=== PATIENT | female | born 1930 | race Caucasian/White ===

== ENCOUNTER 2018-03-06 02:12 | Emergency (ER) | payer MEDICARE, OTHER ==
[~2018-03-06] VITALS: Ht 157.5 cm; Wt 72.6 kg
[~2018-03-06 02:12] MED LIST: ATOR10TA PO; ESOM40CA52 PO; FLUT1DIS IH; MONT10TA22 PO; ONDA8TAB12 PO; SITA1TAB2 PO
--- NOTE | 2018-03-06 02:39 | NUR ---
PT BROUGHT TO EMERGENCY ROOM BY FAMILY COMPLAINING OF HIGH BLOOD PRESSURE AND CHEST PAIN. CHEST PAIN STARTED YESTERDAY 06/27, DESCRIBING THE PAIN TIGHTNESS IN THE CHEST. NO COUGH, NO FLU LIKE SYMPTOMS.
[2018-03-06] MEDS ORDERED: ACETAMINOPHEN ES 500 MG TABLET PO ONE (03:30)
[2018-03-06] MEDS ORDERED: NITROGLYCERIN 0.4 MG/TAB BOTTLE SL ONE (03:30)
[2018-03-06] MEDS ORDERED: ONDANSETRON HCL/PF 4 MG/2 ML VIAL IVP ONE (03:30)
[2018-03-06] MEDS ORDERED: NITROGLYCERIN PACKET 1 GM PACKET TD ONE (03:30)
[2018-03-06] MEDS ORDERED: ASPIRIN 81 MG TAB.CHEW PO ONE (03:30)
[2018-03-06 03:42] LABS: BASOPHILS # (AUTO) 0.1 /CMM (0.0-0.2); BASOPHILS % (AUTO) 1.1 % (0.0-2.0); EOSINOPHILS % (AUTO) 4.5 % (0.0-6.0); HEMATOCRIT 35 % (33-45); HEMOGLOBIN 11.9 g/dL (11.5-14.8); LYMPHOCYTES # (AUTO) 1.5 /CMM (0.8-4.8); MEAN CORPUSCULAR HGB CONC 34 g/dl (31.0-36.0); MEAN CORPUSCULAR VOLUME 83 fL (82-100); MONOCYTES # (AUTO) 0.5 /CMM (0.1-1.30); MONOCYTES % (AUTO) 5.7 % (2.0-12.0); NEUTROPHILS # (AUTO) 5.9 /CMM (1.8-8.9); NEUTROPHILS % (AUTO) 70.7 % (43.0-81.0); PLATELET COUNT (AUTO) 305 /CMM (150-450); WHITE BLOOD COUNT (AUTO) 8.3 K/uL (4.3-11.0)
[2018-03-06] MEDS ORDERED: ONDANSETRON HCL/PF 4 MG/2 ML VIAL ONE (03:44)
[2018-03-06] MEDS ORDERED: NITROGLYCERIN PACKET 1 GM PACKET ONE (03:45)
[2018-03-06] MEDS ORDERED: NITROGLYCERIN 0.4 MG/TAB BOTTLE ONE (03:45)
[2018-03-06] MEDS ORDERED: ACETAMINOPHEN ES 500 MG TABLET ONE (03:45)
[2018-03-06] MEDS ORDERED: ASPIRIN 81 MG TAB.CHEW ONE (03:46)
[2018-03-06 03:59] LABS: CALCIUM, SERUM 9.4 mg/dL (8.5-10.1); CARBON DIOXIDE 25 mmol/L (21-32); CHLORIDE 95 mmol/L (98-107); CREATININE 1.5 mg/dL (0.6-1.3); GLUCOSE 116 mg/dL (74-106); POTASSIUM 3.9 mmol/L (3.5-5.1); SODIUM SERUM 130 mmol/L (136-145); UREA NITROGEN, BLOOD 17 mg/dL (7-18)
[2018-03-06 04:11] LABS: ALANINE AMINOTRANSFERASE 16 U/L (12-78); ALBUMIN 3.5 g/dL (3.4-5.0); ALKALINE PHOSPHATASE 59 U/L (46-116); ASPARTATE AMINOTRANSFERASE 8 U/L (15-37); B-TYPE NATRIURETIC PEPTIDE 606 PG/ML (0-125); BILIRUBIN,DIRECT 0.1 mg/dL (0.0-0.2); BILIRUBIN,TOTAL 0.4 mg/dL (0.2-1.0); TOTAL PROTEIN, SERUM 7.1 g/dL (6.4-8.2)
--- NOTE | 2018-03-06 04:45 | NUR ---
Patient is resting comfortably in bed with eyes closed. Easily aroused. VSS
--- NOTE | 2018-03-06 06:02 | NUR ---
PT RESTING IN BED AND ON THE MONITOR. BP DOWNWARD TREND BP 133/80. NO CHEST PAIN.
--- NOTE | 2018-03-06 07:12 | NUR ---
Report Given to Gopi CASTAÑEDA for SUSIE.
--- NOTE | 2018-03-06 07:13 | NUR ---
received report from Deandra CASTAÑEDA for rex.
[2018-03-06 08:05] VITALS: BP 142/78
--- NOTE | 2018-03-06 08:06 | NUR ---
PT DISCHARGED TO HOME WITH FAMILY MEMBER BY WHEEL CHAIR PIV REMOVED WITH TIP INTACT. PT GIVEN PRESCRIPTON AND ACI WILL FOLLOW UP JALEN PATEL
== END 2018-03-06 08:07 | disposition home or self-care (01) ==
LOC: ER 02:14
DX: R07.89 Other chest pain (principal); I10 Essential (primary) hypertension; N28.9 Disorder of kidney and ureter, unspecified; E11.9 Type 2 diabetes mellitus without complications; N28.1 Cyst of kidney, acquired
CPT/HCPCS: 36415; 71045-TC; 80048-TC; 80076-TC; 83880; 84484-TC; 85025-TC; 85378-TC; J2405

== ENCOUNTER 2019-04-21 17:57 | Inpatient (IN) | payer MEDICARE, OTHER ==
[~2019-04-21] VITALS: Ht 154.9 cm; Wt 73.5 kg
[~2019-04-21 17:57] MED LIST changes: -ONDA8TAB12 PO; +ONDA8TAB65 PO
--- NOTE | 2019-04-21 18:01 | NUR ---
BIBRA 89 FROM HOME C/O CHEST PAIN SHARP NON RADIATING STARTED 20 MINS AGO, TO ER BED 9, HOOKED TO EMERGENCY SERVICES DISPATCHER, CHANGED TO HOSP GOWN, WARM BLANKET PROVIDED, PATIENT AOx4, BREATHING EVEN AND UNLABORED. DR SPEARS AT BEDSIDE
--- NOTE | 2019-04-21 18:12 | NUR ---
RUBBER GOODS FINISHER AT BEDSIDE
[2019-04-21 18:32] LABS: BASOPHILS # (AUTO) 0.1 /CMM (0.0-0.2); BASOPHILS % (AUTO) 1.5 % (0.0-2.0); EOSINOPHILS % (AUTO) 5.7 % (0.0-6.0); HEMATOCRIT 37 % (33-45); HEMOGLOBIN 12.7 g/dL (11.5-14.8); LYMPHOCYTES % (AUTO) 27.1 % (20.0-44.0); MEAN CORPUSCULAR HGB CONC 34 g/dl (31.0-36.0); MEAN CORPUSCULAR VOLUME 84 fL (82-100); MONOCYTES # (AUTO) 0.6 /CMM (0.1-1.30); MONOCYTES % (AUTO) 7.4 % (2.0-12.0); NEUTROPHILS # (AUTO) 4.4 /CMM (1.8-8.9); NEUTROPHILS % (AUTO) 58.3 % (43.0-81.0); PLATELET COUNT (AUTO) 321 /CMM (150-450); WHITE BLOOD COUNT (AUTO) 7.5 K/uL (4.3-11.0)
[2019-04-21 18:39] LABS: CALCIUM, SERUM 9.5 mg/dL (8.5-10.1); CARBON DIOXIDE 26 mmol/L (21-32); CHLORIDE 93 mmol/L (98-107); CREATININE 1.6 mg/dL (0.6-1.3); GLUCOSE 156 mg/dL (74-106); POTASSIUM 4.3 mmol/L (3.5-5.1); SODIUM SERUM 128 mmol/L (136-145); UREA NITROGEN, BLOOD 22 mg/dL (7-18)
[2019-04-21] MEDS ORDERED: ASPI-1498 PO (18:51)
[2019-04-21] MEDS ORDERED: DESV50TA20 PO (18:51)
[2019-04-21] MEDS ORDERED: SITA1TAB2 PO (18:51)
[2019-04-21] MEDS ORDERED: BENA10TA74 PO (18:51)
[2019-04-21] MEDS ORDERED: CLON0.2T PO (18:51)
[2019-04-21] MEDS ORDERED: ATEN50TA PO (18:51)
[2019-04-21] MEDS ORDERED: CALC-7 PO (18:51)
[2019-04-21] MEDS ORDERED: LOVA20TA2 PO (18:51)
--- NOTE | 2019-04-21 19:10 | NUR ---
[facility]ED [facility].
--- NOTE | 2019-04-21 19:17 | NUR ---
REPORT GIVEN TO KAREN CASTAÑEDA FOR SUSIE
--- NOTE | 2019-04-21 19:41 | NUR ---
DR. SPEARS ON THE PHONE WITH DR. AGUILERA
--- NOTE | 2019-04-21 19:51 | NUR ---
CALLED FOR TELE BED
--- NOTE | 2019-04-21 19:54 | NUR ---
RECIEVED BED 313-2 T
--- NOTE | 2019-04-21 20:22 | NUR ---
REPORT GIVEN TO PORTER ON THIRD FLOOR
[2019-04-21 20:30] VITALS: BP 147/77
--- NOTE | 2019-04-21 20:30 | NUR ---
TELE/RN NEW ADMISSION NOTES PATIENT IS A 89 YO FARSI AND SAUDI ARABIAN SPEAKING OBESE FEMALE WITH INVOLVED FAMILY MEMBER (SON) WHO WAS BROUGHT TO ER FOR CHEST PAIN, PATIENT WAS ADMITTED FROM [place] LAST WEEK REPORTED BY SON FOR LOWER EXTREMITIES NUMBNESS, PATIENT WENT TO DAY CARE AND USES WALKER BUT HAD CHEST PAIN EPISODE SINCE LAST NIGHT, MD AGUILERA ADMITTING DRKarri MEDICATION HOME REPORTED, BELONGINGS RECEIVED AND RECORDER, WITH DENTURES UPPER AND LOWER, WITH SOME PAIN CHEST PAIN WHEN SHE MOVES BUT AT REST IS FINE. RESPIRATIONS EVEN AND UNLABORED, BED LOCKED, ON OXYGEN FOR COMFORT, BOTED SELLING ON BILTERAL FEET, ROOM ORIENTATION PROVIDED. BED LOCKED, CALL LIGHTS WITHIN REACH, PATIENT REPORTED SOME ANFRY
--- NOTE | 2019-04-21 20:35 | NUR ---
pt was trasferred to rm [id number] under ACLS
[2019-04-21 21:56] LABS: ALBUMIN 3.6 g/dL (3.4-5.0); BILIRUBIN,DIRECT 0.1 mg/dL (0.0-0.2); BILIRUBIN,TOTAL 0.2 mg/dL (0.2-1.0); TOTAL PROTEIN, SERUM 7.4 g/dL (6.4-8.2)
[2019-04-21] MEDS ORDERED: MORPHINE SULFATE INJ 2 MG/ML DISP.SYRIN IV PRN (22:00)
[2019-04-21] MEDS ORDERED: Z GUARD REMEDY 2 OZ OINT TP PRN (22:00)
[2019-04-21] MEDS ORDERED: ACETAMINOPHEN 325 MG TABLET PO PRN (22:00)
[2019-04-21] MEDS ORDERED: ONDANSETRON HCL/PF 4 MG/2 ML VIAL IVP PRN (22:00)
[2019-04-22] VITALS (8 sets, daily range): BP systolic 114–160; BP diastolic 56–89
--- NOTE | 2019-04-22 06:56 | NUR ---
[id number]/RN NOTES RECEIVED PATIENT IN BED HOB ELEVATED, DENIES PAIN WHILE RESTING IN BED, ASSISTED WITH ALL NEEDS, CAN AMBULATE SLOWLY BUT WEAK. KEPT COMFORTABLE, WILL ENDORSE TO AM RN FOR SUSIE.
--- NOTE | 2019-04-22 07:05 | NUR ---
CARPENTER RAILCAR OPENING NOTES RECEIVED PATIENT IN BED, ASLEEP, AROUSABLE TO VERBAL AND TACTILE STIMULI. HOB ELEVATED. ON ROOM AIR WITH SPO2 AT 99%. NO SOB. DENIES ANY C/O PAIN NOR DISCOMFORT AT THIS TIME. ON TELE MONITORING SB: 53. LFA # 22 INTACT AND PATENT. BED IN LOWEST POSITION, LOCKED. BED ALARM ON. CALL LIGHT WITHIN REACH.
[2019-04-22 07:34] LABS: BASOPHILS # (AUTO) 0.1 /CMM (0.0-0.2); BASOPHILS % (AUTO) 1.2 % (0.0-2.0); EOSINOPHILS % (AUTO) 9.9 % (0.0-6.0); HEMATOCRIT 38 % (33-45); HEMOGLOBIN 12.7 g/dL (11.5-14.8); LYMPHOCYTES # (AUTO) 2.1 /CMM (0.8-4.8); LYMPHOCYTES % (AUTO) 26.7 % (20.0-44.0); MEAN CORPUSCULAR HGB CONC 33 g/dl (31.0-36.0); MEAN CORPUSCULAR VOLUME 85 fL (82-100); MONOCYTES # (AUTO) 0.6 /CMM (0.1-1.30); MONOCYTES % (AUTO) 7.9 % (2.0-12.0); NEUTROPHILS # (AUTO) 4.3 /CMM (1.8-8.9); NEUTROPHILS % (AUTO) 54.3 % (43.0-81.0); PLATELET COUNT (AUTO) 280 /CMM (150-450); RED BLOOD CELL COUNT(AUTO) 4.52 MIL/uL (4.0-5.2)
[2019-04-22 07:48] LABS: ALANINE AMINOTRANSFERASE 13 U/L (12-78); ALBUMIN 3.4 g/dL (3.4-5.0); ALKALINE PHOSPHATASE 41 U/L (46-116); ASPARTATE AMINOTRANSFERASE 12 U/L (15-37); BILIRUBIN,TOTAL 0.4 mg/dL (0.2-1.0); CALCIUM, SERUM 9.6 mg/dL (8.5-10.1); CARBON DIOXIDE 28 mmol/L (21-32); CHLORIDE 96 mmol/L (98-107); CREATININE 1.5 mg/dL (0.6-1.3); GLUCOSE 103 mg/dL (74-106); MAGNESIUM 1.8 mg/dL (1.8-2.4); PHOSPHORUS 4.2 mg/dL (2.5-4.9); POTASSIUM 4.2 mmol/L (3.5-5.1); SODIUM SERUM 132 mmol/L (136-145); TOTAL PROTEIN, SERUM 7.1 g/dL (6.4-8.2); UREA NITROGEN, BLOOD 21 mg/dL (7-18)
[2019-04-22 08:04] LABS: CHOLESTEROL 155 mg/dL (<200); HDL CHOLESTEROL 55 mg/dL (40-60); LDL 86 mg/dL (0-99); THYROID STIMULATING HORMONE 2.641 uIU/mL (0.358-3.74); TRIGLYCERIDES 68 mg/dL (30-150)
[2019-04-22] MEDS: ATENOLOL 50 MG TABLET PO SCH (08:23)
[2019-04-22] MEDS: ASPIRIN EC 81 MG TABLET.DR PO SCH (08:23)
[2019-04-22] MEDS: PANTOPRAZOLE 40 MG TABLET.DR PO SCH (08:23)
[2019-04-22] MEDS: LINAGLIPTIN 5 MG TABLET PO SCH (08:23)
[2019-04-22] MEDS: CALCIUM CARB 250MG /VITAMIN D 1 UDTAB PO SCH (08:23)
[2019-04-22] MEDS ORDERED: BENAZEPRIL HCL 10 MG TABLET PO SCH (09:00)
[2019-04-22] MEDS ORDERED: METFORMIN 500 MG TABLET PO SCH (09:00)
[2019-04-22] MEDS: IV NS 0.9% 1,000 ML IV PRN ×2 (10:19→23:51)
[2019-04-22 13:51] LABS: APPEARANCE,URINE CLOUDY (CLEAR); BILIRUBIN,URINE NEGATIVE (NEGATIVE); BLOOD, URINE TRACE-INTA Ery/uL (NEGATIVE); COLOR,URINE YELLOW (YELLOW); KETONES,URINE NEGATIVE (NEGATIVE); LEUKOCYTE ESTERASE ,URINE MODERATE (NEGATIVE); NITRITE, URINE NEGATIVE (NEGATIVE); PROTEIN,URINE 100 mg/dl (NEGATIVE); UGLUCOSE NEGATIVE (NEGATIVE); UROBILINOGEN,URINE 0.2 EU/dL (0.2)
[2019-04-22 14:06] LABS: BACTERIA,URINE 3+ /HPF (None Seen); RBC,URINE 0-2 /HPF (0-2); SQUAMOUS EPITHELIAL CELL,UR Few /HPF (None Seen); WBC,URINE 51-80 /HPF (0-3)
[2019-04-22 14:42] LABS: CREATININE, URINE 76.5 MG/DL (30.0-125.0); URINE TOTAL PROTEIN 77.3 mg/dL (0-11.9)
[2019-04-22 15:21] LABS: EOSINOPHIL,URINE Rare
--- NOTE | 2019-04-22 18:55 | NUR ---
ABRASIVE MIXER CLOSING NOTES PATIENT RESTING COMFORTABLY IN BED. ALERT AND ORIENTED X4. HOB ELEVATED. NO SOB. DENIES ANY C/O PAIN NOR DISCOMFORT AT THIS TIME. LFA # 22 INTACT AND PATENT INFUSING NS AT 125ML/HR WILVER WELL. BED IN LOWEST POSITION, LOCKED. BED ALARM ON. CALL LIGHT WITHIN REACH. IN NO APPARENT DISTRESS.
--- NOTE | 2019-04-22 19:50 | NUR ---
MS RN OPENING NOTES PATIENT RESTING IN BED COMFORTABLY; BREATHING EVEN AND UNLABORED; NO S/S OF ACUTE RESPIRATORY DISTRESS NOTED; PATIENT TOLERATING ROOM AIR WELL; L FA #22 RUNNING NS @ 125ML/HR; FLUSHING WELL, NO S/S OF REDNESS OR INFILTRATION; R AC #18, INTACT AND PATENT; FLUSHING WELL, NO S/S OF REDNESS OR INFILTRATION; BED LOCKED IN LOW POSITION; SAFETY PRECAUTIONS IN PLACE; SIDE RAILS X2; CALL LIGHT WITHIN REACH; WILL CONTINUE TO MONITOR
--- NOTE | 2019-04-23 06:22 | NUR ---
MS RN CLOSING NOTES PATIENT RESTING IN BED COMFORTABLY; BREATHING EVEN AND UNLABORED; NO SOB; PATIENT TOLERATING ROOM AIR WELL; R AC #18 INTACT AND PATENT; FLUSHING WELL; L FA #22 RUNNING NS @ 125 ML/HR; PATIENT REQUESTED TO SLEEP WITHOUT DVT PUMPS; PATIENT STATED SHE IS UNABLE TO SLEEP WITH THEM ON; PATIENT IS AWARE SHE WILL NEED TO RE-APPLY DVT PUMPS IN THE MORNING; ALL NEEDS TENDED TO; SAFETY PRECAUTIONS IN PLACE; BED LOCKED IN LOW POSITION; CALL LIGHT WITHIN REACH; WILL ENDORSE CONTINUITY OF CARE TO ONCOMING NURSE
[2019-04-23 07:09] LABS: BASOPHILS # (AUTO) 0.1 /CMM (0.0-0.2); BASOPHILS % (AUTO) 1.2 % (0.0-2.0); EOSINOPHILS % (AUTO) 10.6 % (0.0-6.0); HEMATOCRIT 37 % (33-45); HEMOGLOBIN 12.3 g/dL (11.5-14.8); LYMPHOCYTES # (AUTO) 1.7 /CMM (0.8-4.8); LYMPHOCYTES % (AUTO) 26.2 % (20.0-44.0); MEAN CORPUSCULAR HGB CONC 33 g/dl (31.0-36.0); MEAN CORPUSCULAR VOLUME 85 fL (82-100); MONOCYTES # (AUTO) 0.5 /CMM (0.1-1.30); MONOCYTES % (AUTO) 7.8 % (2.0-12.0); NEUTROPHILS # (AUTO) 3.6 /CMM (1.8-8.9); NEUTROPHILS % (AUTO) 54.2 % (43.0-81.0); PLATELET COUNT (AUTO) 273 /CMM (150-450); RED BLOOD CELL COUNT(AUTO) 4.39 MIL/uL (4.0-5.2); WHITE BLOOD COUNT (AUTO) 6.6 K/uL (4.3-11.0)
[2019-04-23 07:23] LABS: ALANINE AMINOTRANSFERASE 14 U/L (12-78); ALKALINE PHOSPHATASE 35 U/L (46-116); ASPARTATE AMINOTRANSFERASE 12 U/L (15-37); BILIRUBIN,TOTAL 0.4 mg/dL (0.2-1.0); CARBON DIOXIDE 29 mmol/L (21-32); CHLORIDE 99 mmol/L (98-107); CREATININE 1.4 mg/dL (0.6-1.3); GLUCOSE 103 mg/dL (74-106); MAGNESIUM 1.6 mg/dL (1.8-2.4); PHOSPHORUS 3.2 mg/dL (2.5-4.9); POTASSIUM 4.1 mmol/L (3.5-5.1); SODIUM SERUM 133 mmol/L (136-145); TOTAL PROTEIN, SERUM 6.4 g/dL (6.4-8.2); UREA NITROGEN, BLOOD 18 mg/dL (7-18)
[2019-04-23 08:00] VITALS: BP 147/61
--- NOTE | 2019-04-23 08:00 | NUR ---
m/s auto seat cover installer: initial assessment received pt in bed awake, a/ox4; ambulatory. no c/o pain or any discomfort. for cta today. instructed to call for assistance. no apparent distress noted. will monitor.
[2019-04-23] MEDS: LINAGLIPTIN 5 MG TABLET PO SCH (08:49)
[2019-04-23] MEDS: ASPIRIN EC 81 MG TABLET.DR PO SCH (08:49)
[2019-04-23] MEDS: PANTOPRAZOLE 40 MG TABLET.DR PO SCH (08:49)
[2019-04-23] MEDS: CALCIUM CARB 250MG /VITAMIN D 1 UDTAB PO SCH (08:50)
[2019-04-23] MEDS: ATENOLOL 50 MG TABLET PO SCH (08:50)
--- NOTE | 2019-04-23 10:00 | NUR ---
m/s human geography instructor: notes resting comfortable. denies chest pain or any discomfort. pt for cta today. f/u made to cath lab technologist and informed me that they are doing outpatient pts first and then floor. pt made aware. instructed to call for assistance.
[2019-04-23] MEDS: CEPHALEXIN MONOHYDRATE 250 MG CAPSULE PO SCH ×2 (10:50→20:40)
--- NOTE | 2019-04-23 11:15 | NUR ---
m/s resident services director: notes ambulating in hallway (around unit) using fww at this time.
--- NOTE | 2019-04-23 11:52 | NUR ---
m/s mind reader: md visit seen and examined by dwight with verbal order to give mag oxide 800mg po once. order read back and carried out.
[2019-04-23] MEDS ORDERED: MAGNESIUM OXIDE 400 MG TABLET PO ONE (12:00)
--- NOTE | 2019-04-23 13:30 | NUR ---
m/s claim examiner: notes still awaiting for cta to be done. f/u made to environmental laboratory technician, spoke to abril and informed me that they still have one pt there and will come up to pick her up after. pt made aware.
[2019-04-23] MEDS: IV NS 0.9% 1,000 ML IV PRN (14:28)
--- NOTE | 2019-04-23 14:45 | NUR ---
m/s microsoft exchange architect: notes pt c/o mid chest pain, pt has morphine order, but pt refused when offered, stated, "no morphine, i'm okay." o2 provided at 2l/min via n/c. b/p taken 147/64, hr 67. instructed to call for assistance. will continue to monitor.
--- NOTE | 2019-04-23 15:00 | NUR ---
m/s sizer hand: notes gaye (rn) here and informed me that her cta heart was change for tomorrow by dr. melchor. pt made aware and verbalized understanding. will continue to monitor.
[2019-04-23 16:00] VITALS: BP 146/82
--- NOTE | 2019-04-23 16:00 | NUR ---
m/s dyer assistant: notes son visiting at this time.
--- NOTE | 2019-04-23 18:20 | NUR ---
m/s optical instruments supervisor: notes son left at this time. pt up in chair, watching tv. no distress noted. no c/o pain. instructed to call for assistance. needs attended. will continue to monitor.
--- NOTE | 2019-04-23 19:15 | NUR ---
m/s managing partner digital content marketing [place]: notes bedside report given to hallie (rn) for continuity of care.
--- NOTE | 2019-04-23 19:20 | NUR ---
MS RN OPENING NOTES PATIENT SITTING IN CHAIR NEXT TO BEDSIDE. A/O X4. ABLE TO VERBALIZE NEEDS. ON ROOM AIR. NO S/S OF ACUTE RESPIRATORY DISTRESS AND NO COMPLAINTS OF CHEST PAIN AT THIS TIME. IV PRESENT ON LEFT FOREARM, SIZE 22, INTACT & PATENT, HEP LOCKED. BED LOCKED, SIDE RAILS X2, CALL LIGHT WITHIN REACH. WILL CONTINUE TO MONITOR.
[2019-04-23 20:00] VITALS: BP 148/63
[2019-04-23 20:41] VITALS: BP 178/73
[2019-04-24] MEDS: CEPHALEXIN MONOHYDRATE 250 MG CAPSULE PO SCH ×2 (05:12→12:52)
[2019-04-24 07:11] LABS: BASOPHILS # (AUTO) 0.1 /CMM (0.0-0.2); BASOPHILS % (AUTO) 1.4 % (0.0-2.0); EOSINOPHILS % (AUTO) 11.7 % (0.0-6.0); HEMATOCRIT 37 % (33-45); HEMOGLOBIN 12.1 g/dL (11.5-14.8); LYMPHOCYTES # (AUTO) 1.5 /CMM (0.8-4.8); LYMPHOCYTES % (AUTO) 25.5 % (20.0-44.0); MEAN CORPUSCULAR HGB CONC 33 g/dl (31.0-36.0); MEAN CORPUSCULAR VOLUME 85 fL (82-100); MONOCYTES # (AUTO) 0.4 /CMM (0.1-1.30); MONOCYTES % (AUTO) 7.1 % (2.0-12.0); NEUTROPHILS # (AUTO) 3.1 /CMM (1.8-8.9); NEUTROPHILS % (AUTO) 54.3 % (43.0-81.0); PLATELET COUNT (AUTO) 279 /CMM (150-450); RED BLOOD CELL COUNT(AUTO) 4.29 MIL/uL (4.0-5.2); WHITE BLOOD COUNT (AUTO) 5.8 K/uL (4.3-11.0)
[2019-04-24 07:24] LABS: ALANINE AMINOTRANSFERASE 14 U/L (12-78); ALBUMIN 3.2 g/dL (3.4-5.0); ALKALINE PHOSPHATASE 36 U/L (46-116); ASPARTATE AMINOTRANSFERASE 12 U/L (15-37); BILIRUBIN,TOTAL 0.4 mg/dL (0.2-1.0); CARBON DIOXIDE 31 mmol/L (21-32); CHLORIDE 101 mmol/L (98-107); CREATININE 1.4 mg/dL (0.6-1.3); GLUCOSE 103 mg/dL (74-106); MAGNESIUM 1.5 mg/dL (1.8-2.4); PHOSPHORUS 2.6 mg/dL (2.5-4.9); SODIUM SERUM 136 mmol/L (136-145); TOTAL PROTEIN, SERUM 6.6 g/dL (6.4-8.2); UREA NITROGEN, BLOOD 17 mg/dL (7-18)
[2019-04-24] MEDS: PANTOPRAZOLE 40 MG TABLET.DR PO SCH (07:59)
--- NOTE | 2019-04-24 07:59 | NUR ---
MS RN CLOSING NOTES PATIENT SLEEPING IN BED, EASY TO AWAKEN. A/O X4. ON ROOM AIR. NO COMPLAINTS OF SOB OR CHEST PAIN. IV PRESENT ON LEFT HAND, SIZE 22, INTACT & PATENT WITH NS RUNNING AT 125 CC/HR. IV PRESENT ON LEFT AC, SIZE 20, INTACT & PATENT, HEP LOCKED. BED LOCKED, ALARM ON, SIDE RAILS X2, CALL LIGHT WITHIN REACH. WILL ENDORSE TO DAY SHIFT NURSE TO FOLLOW PLAN OF CARE.
[2019-04-24 08:00] VITALS: BP 144/60
--- NOTE | 2019-04-24 08:00 | NUR ---
MS/RN Opening Note Received patient AO x 3-4, able to respond all stimuli. Respiratory even and unlabored, no sob or difficulty breath observed. Denies pain at this time, skin is warm to touch, clean/dry, intact IV site. Keep lower portion of bed with elevated HOB. Pt going CT angio 3D at 1030, consent signed. Call light within reach, will continue to monitor.
[2019-04-24] MEDS ORDERED: IV NS 0.9% 500 ML IV PRN (09:00)
[2019-04-24] MEDS: CALCIUM CARB 250MG /VITAMIN D 1 UDTAB PO SCH (09:00)
[2019-04-24] MEDS: LINAGLIPTIN 5 MG TABLET PO SCH (09:00)
[2019-04-24] MEDS: ATENOLOL 50 MG TABLET PO SCH (09:00)
[2019-04-24] MEDS ORDERED: NITROGLYCERIN 0.4 MG/TAB BOTTLE SL ONE ×2 (09:00→10:00)
[2019-04-24] MEDS: ASPIRIN EC 81 MG TABLET.DR PO SCH (09:00)
[2019-04-24] MEDS ORDERED: IOHEXOL-350 100 ML VIAL IV ONE (09:30)
[2019-04-24] MEDS ORDERED: IV NS 0.9% 250 ML IV ONE (09:30)
[2019-04-24] MEDS ORDERED: METOPROLOL TARTRATE INJ 5 MG/5 ML AMPUL ONE (09:37)
[2019-04-24] MEDS ORDERED: NITROGLYCERIN 0.4 MG/TAB BOTTLE ONE (09:37)
[2019-04-24] MEDS: METOPROLOL TARTRATE INJ 5 MG/5 ML AMPUL IVP PRN ×2 (09:42→09:47)
--- NOTE | 2019-04-24 09:51 | NUR ---
RN NOTES: CTA procedure: S/p CTA, patient able to tolerate procedure, Patient denies pain or discomfort at this time. Patient transferred back to her room
[2019-04-24] MEDS ORDERED: METOPROLOL TARTRATE INJ 5 MG/5 ML AMPUL IVP PRN (10:00)
[2019-04-24] MEDS: Magnesium 1GM/D5W 100ML PREMIX 100 ML IV SCH ×2 (10:24→11:32)
[2019-04-24] MEDS: IV NS 0.9% 1,000 ML IV PRN (10:24)
[2019-04-24] MEDS ORDERED: CEPH250C PO (12:32)
[2019-04-24 16:00] VITALS: BP 144/80
--- NOTE | 2019-04-24 18:30 | NUR ---
Given discharge instruction include quill picking machine operator prescription, adverse reaction, and patient/family member verbally understanding. Pt left facility accompanied by family and staff to the private car. Denies pain or any discomfort, in stable condition.
[2019-04-25] MEDS ORDERED: REGADENOSON 0.4 MG/5 ML DISP.SYRIN IVP ONE (08:00)
== END 2019-04-24 18:37 | disposition home health service (06) | DRG 682 ==
LOC: ER 18:00 → TELE 20:00 → MED 04-22 09:48
PROVIDERS: ADMIT Internal Medicine; ATTEND Nurse Practitioner Acute Care
DX: N17.0 Acute kidney failure with tubular necrosis (principal); I50.33 Acute on chronic diastolic (congestive) heart failure; E22.2 Syndrome of inappropriate secretion of antidiuretic hormone; D68.69 Other thrombophilia; I11.0 Hypertensive heart disease with heart failure; I25.10 Atherosclerotic heart disease of native coronary artery without angina pectoris; E11.9 Type 2 diabetes mellitus without complications; J44.9 Chronic obstructive pulmonary disease, unspecified; E78.5 Hyperlipidemia, unspecified; Z79.899 Other long term (current) drug therapy; Z79.51 Long term (current) use of inhaled steroids; E11.65 Type 2 diabetes mellitus with hyperglycemia; E66.9 Obesity, unspecified; E86.9 Volume depletion, unspecified; G89.29 Other chronic pain; G62.9 Polyneuropathy, unspecified; Z79.84 Long term (current) use of oral hypoglycemic drugs; N28.1 Cyst of kidney, acquired; K57.30 Diverticulosis of large intestine without perforation or abscess without bleeding; Z86.73 Personal history of transient ischemic attack (TIA), and cerebral infarction without residual deficits; N25.0 Renal osteodystrophy; T43.205A Adverse effect of unspecified antidepressants, initial encounter; Y92.009 Unspecified place in unspecified non-institutional (private) residence as the place of occurrence of the external cause; Z68.30 Body mass index [BMI] 30.0-30.9, adult; R53.1 Weakness
CPT/HCPCS: 36415; 71045-TC; 75574; 76770-TC; 80048-TC; 80053-TC; 80061-TC; 80076-TC; 81000-TC; 82570-TC; 82962-TC; 83735-TC; 83880; 84100-TC; 84155-TC; 84300-TC; 84443-TC; 84484-TC; 85025-TC; 87081-TC; 87086-TC; 87186-TC; 93307-TC; 97116-TC; 97530-TC; G0378; J2270; J2405; J3475; J3490; J7030; J7050; Q9967

== ENCOUNTER 2019-11-08 02:17 | Inpatient (IN) | payer MEDICARE, OTHER ==
[~2019-11-08] VITALS: Ht 165.1 cm; Wt 71.2 kg
[~2019-11-08 02:17] MED LIST changes: +ASPI-1498 PO; +ATEN50TA PO; -ATOR10TA PO; +BENA10TA74 PO; +CALC-7 PO; +CEPH250C PO; +CLON0.2T PO; +DESV50TA20 PO; +LOVA20TA2 PO; -MONT10TA22 PO; -ONDA8TAB65 PO
--- NOTE | 2019-11-08 02:25 | NUR ---
PT [id number] FROM HOME C/O SOB SINCE 6PM TODAY, PER REPORT, PT ON LOW O2 80'S, 90'S WITH 2L N/C. PT AAOX2, SATTING 97% ON RA, RT AT BEDSIDE, NO ACUTE DISTRESS NOTED. PT CONNECTED TO THE PRODUCT SAFETY SPECIALIST AND POX
[2019-11-08] MEDS ORDERED: ALBUTEROL FS 2.5 MG/3 ML VIAL.NEB NEB ONE (02:30)
--- NOTE | 2019-11-08 02:30 | NUR ---
TRADE MANAGER AT BEDSIDE FOR BLOOD DRAW
[2019-11-08 02:47] LABS: BASOPHILS % (AUTO) 0.3 % (0.0-2.0); EOSINOPHILS % (AUTO) 2.5 % (0.0-6.0); HEMATOCRIT 41 % (33-45); HEMOGLOBIN 13.2 g/dL (11.5-14.8); LYMPHOCYTES # (AUTO) 0.7 /CMM (0.8-4.8); LYMPHOCYTES % (AUTO) 4.8 % (20.0-44.0); MEAN CORPUSCULAR HGB CONC 32 g/dl (31.0-36.0); MEAN CORPUSCULAR VOLUME 87 fL (82-100); MONOCYTES # (AUTO) 0.3 /CMM (0.1-1.30); MONOCYTES % (AUTO) 1.7 % (2.0-12.0); NEUTROPHILS # (AUTO) 13.2 /CMM (1.8-8.9); NEUTROPHILS % (AUTO) 90.7 % (43.0-81.0); PLATELET COUNT (AUTO) 351 /CMM (150-450); RED BLOOD CELL COUNT(AUTO) 4.76 MIL/uL (4.0-5.2); WHITE BLOOD COUNT (AUTO) 14.6 K/uL (4.3-11.0)
--- NOTE | 2019-11-08 03:01 | NUR ---
RT at bedside for breathing treatment.
[2019-11-08] MEDS ORDERED: ALBUTEROL FS 2.5 MG/3 ML VIAL.NEB ONE (03:02)
--- NOTE | 2019-11-08 03:04 | NUR ---
Patient amabulates with assistance to the restroom.
[2019-11-08 03:08] LABS: ALANINE AMINOTRANSFERASE 18 U/L (12-78); ALBUMIN 3.4 g/dL (3.4-5.0); ALKALINE PHOSPHATASE 55 U/L (46-116); ASPARTATE AMINOTRANSFERASE 15 U/L (15-37); B-TYPE NATRIURETIC PEPTIDE 4056 PG/ML (0-125); BILIRUBIN,DIRECT 0.1 mg/dL (0.0-0.2); BILIRUBIN,TOTAL 0.4 mg/dL (0.2-1.0); CALCIUM, SERUM 9.5 mg/dL (8.5-10.1); CARBON DIOXIDE 26 mmol/L (21-32); CHLORIDE 99 mmol/L (98-107); CREATININE 1.9 mg/dL (0.6-1.3); GLUCOSE 166 mg/dL (74-106); POTASSIUM 4.2 mmol/L (3.5-5.1); SODIUM SERUM 136 mmol/L (136-145); TOTAL PROTEIN, SERUM 7.6 g/dL (6.4-8.2); UREA NITROGEN, BLOOD 21 mg/dL (7-18)
--- NOTE | 2019-11-08 03:08 | NUR ---
Vinicio chavira took patient for CT and Xray
--- NOTE | 2019-11-08 03:10 | NUR ---
urine colllected and sent to lab.
[2019-11-08] MEDS ORDERED: FUROSEMIDE 40 MG/4 ML VIAL IV ONE (03:30)
[2019-11-08] MEDS ORDERED: FUROSEMIDE 40 MG/4 ML VIAL ONE (03:32)
--- NOTE | 2019-11-08 03:48 | NUR ---
RT AT BEDSIDE.
[2019-11-08] MEDS ORDERED: CEFTRIAXONE 1GM BAG (ER ONLY) 50 ML IV ONE (04:46)
[2019-11-08] MEDS ORDERED: MORPHINE SULFATE INJ 2 MG/ML DISP.SYRIN ONE (04:46)
[2019-11-08] MEDS ORDERED: AZITHROMYCIN 500 MG VIAL ONE (04:46)
[2019-11-08] MEDS ORDERED: ONDANSETRON HCL/PF 4 MG/2 ML VIAL ONE (04:46)
[2019-11-08] MEDS ORDERED: ONDANSETRON HCL/PF 4 MG/2 ML VIAL IV ONE (05:00)
[2019-11-08] MEDS ORDERED: MORPHINE SULFATE INJ 2 MG/ML DISP.SYRIN IV ONE (05:00)
[2019-11-08] MEDS ORDERED: AZITHROMYCIN 500 MG in IV D5W 250 ML IV ONE (05:00)
[2019-11-08] MEDS ORDERED: CEFTRIAXONE 1GM BAG (ER ONLY) 1 GM/50 ML PIGGYBACK IV ONE (05:00)
--- NOTE | 2019-11-08 05:14 | NUR ---
REPORT GIVEN TO GARRY BUENROSTRO FOR SUSIE
--- NOTE | 2019-11-08 05:22 | NUR ---
DR DELUNA ON THE PHONE W/ DR VARGAS
--- NOTE | 2019-11-08 05:30 | NUR ---
pt transferred to room via acls protocol w/ rn and emt
[2019-11-08 05:40] VITALS: BP 134/94
--- NOTE | 2019-11-08 05:40 | NUR ---
TELE/RN NEW ADMISSION NOTES RECEIVED PATIENT ON A GURNEY ACCOMPANIED BY RN AND ATTENDANT, PATIENT ABLE TO BE ASSISTED WITH MODERATE ASSISTANCE TO BED, REQUIRE OXYGEN AT 2 LITER, ALERT X2, WEAK,AND SKIN DRY, OBSERVE WOUND ON THE NOSE 2X1 CM, PATIENT WAS BROUGHT BY SON DUE TO SOB DESATURATION AND ER HAVE GIVEN ANTIBIOTICS AND PAIN MORPHINE BREATHING TREATMENT PROVIDED AND PLACED ON OXYGEN VIA NC, ZOFRAN WAS GIVEN TOO, PATIENT RESPIRATIONS EVEN AND UNALBNORED, MD VARGAS ACCEPTING MD, HOME MEDS REPORTED, OBSERVE ABDOMEN DISTENDED WITH ELEVATED FEVER, COOLING MEASURES PROVIDED. BED LOCKED, CALL LIGHTS WITHIN REACH, WILL ENDORSE TO AM RN FOR SUSIE. BELONGINGS CHECKED, IV SITE ON RFA GAUGE 20 PATENT, PATIENT TELE READING SINUS TACH AT 109.
[2019-11-08] MEDS ORDERED: ONDANSETRON HCL/PF 4 MG/2 ML VIAL IVP PRN (06:30)
[2019-11-08] MEDS ORDERED: CEFTRIAXONE 1 G in IV D5W 50 ML IV SCH (06:30)
[2019-11-08] MEDS ORDERED: Z GUARD REMEDY 2 OZ OINT TP PRN (06:30)
[2019-11-08] MEDS ORDERED: ZOLPIDEM TARTRATE 5 MG TABLET PO PRN (06:30)
[2019-11-08] MEDS ORDERED: MAG HYDROX/AL HYDROX/SIMETH 30 ML UDC PO PRN (06:30)
[2019-11-08] MEDS ORDERED: MAGNESIUM HYDROXIDE 30 ML UDC PO PRN (06:30)
[2019-11-08 06:33] VITALS: BP 147/85
--- NOTE | 2019-11-08 07:00 | NUR ---
RECHECK TEMP AT 101.2 DEG F
[2019-11-08 07:01] VITALS: BP 147/85
[2019-11-08] MEDS ORDERED: CLONIDINE HCL 0.1 MG TABLET PO PRN (07:30)
[2019-11-08 08:00] VITALS: BP 141/88
--- NOTE | 2019-11-08 08:00 | NUR ---
TELE/RN NEW AM NOTES RECEIVED PATIENT AWAKE.WITH MODERATE ASSISTANCE WITH BRP, REQUIRES OXYGEN AT 2 LITER, O2 SAT 98% NO SOB DURING BRP WITHOUT O2. ALERT X2, WEAK,AND SKIN DRY, WITH WOUND ON THE NOSE 2X1 CM DUE TO NOSE CANCER REMOVAL 3 WKS AGO PER DAUGHTER AND THE NASAL SURGICAL WOUND INCREASED IN SIZE.PATIENT RESPIRATIONS EVEN AND UNLABORED.NOTIFIED DR SHEPHERD FOR MED RECONCILIATION. BED LOCKED, CALL LIGHT PLACED WITHIN REACH,
--- NOTE | 2019-11-08 08:02 | NUR ---
WOUND CARE CONSULT: PT PRESENTS WITH OPEN AREA TO RT SIDE OF NOSE, PRESENT ON ADMISSION. PT STATES HAD SURGERY FOR SKIN CANCER. RECOMMEND SURGICAL CONSULT. DR LOVE NOTIFIED OF CONSULT REQUEST. CURRENT LEOPOLDO SCORE IS 17. NO FOOT WOUNDS NOTED. PT DENIES ANY OTHER SKIN ISSUE. WILL SEE PRN. BUTT IN AGREEMENT WITH PLAN OF CARE.
[2019-11-08] MEDS: CALCIUM CARB 250MG /VITAMIN D 1 UDTAB PO SCH (08:41)
[2019-11-08] MEDS: PANTOPRAZOLE 40 MG TABLET.DR PO SCH (08:41)
[2019-11-08] MEDS: ASPIRIN EC 81 MG TABLET.DR PO SCH (08:41)
[2019-11-08] MEDS: ATENOLOL 50 MG TABLET PO SCH (08:41)
[2019-11-08] MEDS: HYDROCODONE/APAP 5/325MG TABLET PO PRN (08:42)
[2019-11-08] MEDS: FLUTICASONE/VILANTEROL 1 EACH BLST.W.DEV IH SCH (08:44)
[2019-11-08] MEDS ORDERED: METFORMIN 500 MG TABLET PO SCH (09:00)
[2019-11-08] MEDS ORDERED: BENAZEPRIL HCL 10 MG TABLET PO SCH (09:00)
[2019-11-08] MEDS: LINAGLIPTIN 5 MG TABLET PO SCH (09:07)
[2019-11-08] MEDS: ENOXAPARIN SODIUM 30 MG/0.3 ML DISP.SYRIN SQ SCH (10:43)
--- NOTE | 2019-11-08 12:00 | NUR ---
lactic acid 2.7-notified Dr Haynes and made aware
[2019-11-08 15:48] LABS: CHOLESTEROL 172 mg/dL (<200); HDL CHOLESTEROL 63 mg/dL (40-60); LDL 92 mg/dL (0-99); TRIGLYCERIDES 137 mg/dL (30-150)
--- NOTE | 2019-11-08 15:53 | NUR ---
PT HAD EPISODE OF AFIB HR 78.ORDERED STAT EKG.
--- NOTE | 2019-11-08 15:54 | NUR ---
CHECKED ON THE PT AND PT WAS LYING COMFORTABLY IN BED DENYING ANY DISTRESS OR CHEST DISCOMFORT.WILL CONTINUE TO MONITOR.
[2019-11-08 16:00] VITALS: BP 125/86
--- NOTE | 2019-11-08 16:53 | NUR ---
STAT EKG RESULT SHOWS AFIB. PT IS ON ATENOLOL 50 MG PO DAILY.BP 125/[address] CARDONA WITH NO NEW ORDER.
--- NOTE | 2019-11-08 17:56 | NUR ---
PT CONTINUES TO REFUSE MEALS, SNACKS AND FLUIDS SAYING SHE IS NOT HUNGRY. ENCOURAGED TO INCREASE ORAL INTAKE EXPLAINING THE RISKS AND BENEFITS. REFUSED ALTERNATIVE SNACKS OR MEALS ACCORDING TO PT'S FOOD PREFERENCE BUT STILL REFUSES.
--- NOTE | 2019-11-08 19:24 | NUR ---
Patient is alert,speaks Farsi only, she resides at home with family. She is ambulatory and set up help with adl's. Has no DME or homehealth reported. Has good family support. Family will provide ride when discharge. Addendum: 11/08/19 at 1924 by GAMALIEL IZAGUIRRE RN Amended: Links added.
[2019-11-08 20:13] VITALS: BP 134/77
[2019-11-08] MEDS: ATORVASTATIN 10 MG TABLET PO SCH (21:22)
[2019-11-09] VITALS (8 sets, daily range): BP systolic 105–172; BP diastolic 54–79
[2019-11-09] MEDS: CEFTRIAXONE 1 G in IV D5W 50 ML IV SCH (05:14)
--- NOTE | 2019-11-09 07:30 | NUR ---
TELE/RN OPENING NOTE Patient resting in bed, A&O x 3. Denies any pain/discomfort at this time. Breathing even and non-labored on RA. No respiratory or cardiac distress noted. On tele monitor, reading SR 56. IV access noted on R FA #20, patent and intact, and flushing well. Fall precautions maintained, instructed patient to use call light when in need of assistance. Will continue with current medical management.
[2019-11-09 07:47] LABS: BASOPHILS % (AUTO) 0.2 % (0.0-2.0); EOSINOPHILS % (AUTO) 10.9 % (0.0-6.0); HEMATOCRIT 37 % (33-45); LYMPHOCYTES # (AUTO) 1.4 /CMM (0.8-4.8); LYMPHOCYTES % (AUTO) 14.1 % (20.0-44.0); MEAN CORPUSCULAR HGB CONC 33 g/dl (31.0-36.0); MEAN CORPUSCULAR VOLUME 86 fL (82-100); MONOCYTES # (AUTO) 0.6 /CMM (0.1-1.30); MONOCYTES % (AUTO) 6.3 % (2.0-12.0); NEUTROPHILS # (AUTO) 6.8 /CMM (1.8-8.9); NEUTROPHILS % (AUTO) 68.5 % (43.0-81.0); PLATELET COUNT (AUTO) 312 /CMM (150-450); RED BLOOD CELL COUNT(AUTO) 4.25 MIL/uL (4.0-5.2); WHITE BLOOD COUNT (AUTO) 9.9 K/uL (4.3-11.0)
[2019-11-09 08:01] LABS: ALANINE AMINOTRANSFERASE 13 U/L (12-78); ALBUMIN 2.6 g/dL (3.4-5.0); ALKALINE PHOSPHATASE 42 U/L (46-116); ASPARTATE AMINOTRANSFERASE 13 U/L (15-37); BILIRUBIN,TOTAL 0.2 mg/dL (0.2-1.0); CARBON DIOXIDE 27 mmol/L (21-32); CHLORIDE 97 mmol/L (98-107); CREATININE 2.3 mg/dL (0.6-1.3); GLUCOSE 131 mg/dL (74-106); MAGNESIUM 1.7 mg/dL (1.8-2.4); PHOSPHORUS 4.3 mg/dL (2.5-4.9); POTASSIUM 3.9 mmol/L (3.5-5.1); SODIUM SERUM 134 mmol/L (136-145); TOTAL PROTEIN, SERUM 6.5 g/dL (6.4-8.2); UREA NITROGEN, BLOOD 35 mg/dL (7-18)
[2019-11-09 08:04] LABS: CHOLESTEROL 138 mg/dL (<200); HDL CHOLESTEROL 54 mg/dL (40-60); LDL 68 mg/dL (0-99); TRIGLYCERIDES 107 mg/dL (30-150)
[2019-11-09] MEDS: ASPIRIN EC 81 MG TABLET.DR PO SCH (08:38)
[2019-11-09] MEDS: AZITHROMYCIN 250 MG TABLET PO SCH (08:38)
[2019-11-09] MEDS: CALCIUM CARB 250MG /VITAMIN D 1 UDTAB PO SCH (08:38)
[2019-11-09] MEDS: LINAGLIPTIN 5 MG TABLET PO SCH (08:38)
[2019-11-09] MEDS: PANTOPRAZOLE 40 MG TABLET.DR PO SCH (08:38)
[2019-11-09] MEDS: ATENOLOL 50 MG TABLET PO SCH (08:39)
[2019-11-09] MEDS: ENOXAPARIN SODIUM 30 MG/0.3 ML DISP.SYRIN SQ SCH (08:40)
[2019-11-09] MEDS: FLUTICASONE/VILANTEROL 1 EACH BLST.W.DEV IH SCH (08:41)
[2019-11-09] MEDS: NEOMY SULF/BACITRAC ZN/POLY 15 GM TUBE TP SCH (08:41)
[2019-11-09 10:06] LABS: BILIRUBIN,URINE NEGATIVE (NEGATIVE); BLOOD, URINE NEGATIVE Ery/uL (NEGATIVE); COLOR,URINE YELLOW (YELLOW); KETONES,URINE NEGATIVE (NEGATIVE); LEUKOCYTE ESTERASE ,URINE TRACE (NEGATIVE); NITRITE, URINE NEGATIVE (NEGATIVE); PH,URINE 5.5 (5.0-8.0); PROTEIN,URINE 30 mg/dl (NEGATIVE); UGLUCOSE NEGATIVE (NEGATIVE); UROBILINOGEN,URINE 0.2 EU/dL (0.2)
[2019-11-09 10:09] LABS: APPEARANCE,URINE SLIGHTLY HAZY (CLEAR)
[2019-11-09 10:14] LABS: BACTERIA,URINE Few /HPF (None Seen); RBC,URINE 0-2 /HPF (0-2); SQUAMOUS EPITHELIAL CELL,UR Moderate /HPF (None Seen); WBC,URINE 21-50 /HPF (0-3)
[2019-11-09] MEDS ORDERED: IV NS 0.9% 1,000 ML IV PRN (10:30)
[2019-11-09] MEDS ORDERED: Magnesium 1GM/D5W 100ML PREMIX PIGGYBACK IV ONE (15:00)
[2019-11-09] MEDS ORDERED: MGSO4/D5W 100 ML IV ONE (16:00)
--- NOTE | 2019-11-09 16:54 | NUR ---
MS/RN NOTE Called Niranjan, her son, if he could bring her desvenlafaxin succinate ER 50 mg medication, per pharmacy. Niranjan states he'll bring it tomorrow morning at 0900.
--- NOTE | 2019-11-09 18:50 | NUR ---
MS/RN CLOSING NOTE Patient in bed with HOB elevated, A&O x 3, remains stable, afebrile, no SOB noted. No complaints of pain/discomfort throughout shift. Breathing even and non-labored on RA. No cardiac distress noted. IV access noted on R FA #20, patent and intact, and flushing well. No s/s of infection, infiltration, bleeding noted on the site. Sensation from all peripheral extremities intact. Fall precautions maintained. Will endorse to rn night nurse.
[2019-11-09 19:07] LABS: APPEARANCE,URINE SL CLOUDY (CLEAR); BILIRUBIN,URINE NEGATIVE (NEGATIVE); BLOOD, URINE NEGATIVE Ery/uL (NEGATIVE); COLOR,URINE YELLOW (YELLOW); KETONES,URINE NEGATIVE (NEGATIVE); LEUKOCYTE ESTERASE ,URINE NEGATIVE (NEGATIVE); NITRITE, URINE NEGATIVE (NEGATIVE); PROTEIN,URINE TRACE mg/dl (NEGATIVE); UGLUCOSE NEGATIVE (NEGATIVE); UROBILINOGEN,URINE 0.2 EU/dL (0.2)
[2019-11-09 19:14] LABS: BACTERIA,URINE Rare /HPF (None Seen); MUCUS,URINE Few /LPF (None Seen); SQUAMOUS EPITHELIAL CELL,UR 0-2 /HPF (None Seen)
[2019-11-09 19:21] LABS: CREATININE, URINE 49.4 MG/DL (30.0-125.0); URINE TOTAL PROTEIN 33.9 mg/dL (0-11.9)
--- NOTE | 2019-11-09 19:58 | NUR ---
MS/RN OPENING NOTE Patient awake in bed, A/O x3. Patient denies pain, nausea, vomiting. Afebrile. Breathing even, clear, unlabored, on room air. No signs of acute distress or SOB. IV site RFA 20g saline lock, patent and intact. No signs of redness or infiltration. Sensation intact in all extremities. Able to move extremities well. Patient is ambulatory with assist. Bed in low position, wheels locked, side rails up x2, renata light within reach.
[2019-11-09 20:43] LABS: EOSINOPHIL,URINE None Seen
[2019-11-09] MEDS: ATORVASTATIN 10 MG TABLET PO SCH (21:11)
[2019-11-09] MEDS: ACETAMINOPHEN 325 MG TABLET PO PRN (21:17)
--- NOTE | 2019-11-10 00:49 | NUR ---
MS/RN NOTE Patient BP 163/72. Administered PRN catapres as ordered. Rechecked BP reading 153/74. VSS. Will continue to monitor.
[2019-11-10] MEDS: ACETAMINOPHEN 325 MG TABLET PO PRN (03:50)
[2019-11-10] MEDS: CEFTRIAXONE 1 G in IV D5W 50 ML IV SCH (05:15)
--- NOTE | 2019-11-10 05:55 | NUR ---
MS/RN CLOSING NOTE Patient awake in bed, A/O x3. Afebrile. Breathing even, clear, unlabored, on room air. No signs of acute distress or SOB. IV site RFA 20g saline lock, patent and intact. No signs of redness or infiltration. Sensation intact in all extremities. Able to move extremities well. Patient is ambulatory with assist. Bed in low position, wheels locked, side rails up x2, renata light within reach.
[2019-11-10 06:33] LABS: BASOPHILS % (AUTO) 0.5 % (0.0-2.0); EOSINOPHILS % (AUTO) 14.1 % (0.0-6.0); HEMATOCRIT 36 % (33-45); HEMOGLOBIN 11.6 g/dL (11.5-14.8); LYMPHOCYTES # (AUTO) 1.3 /CMM (0.8-4.8); LYMPHOCYTES % (AUTO) 16.6 % (20.0-44.0); MEAN CORPUSCULAR HGB CONC 33 g/dl (31.0-36.0); MEAN CORPUSCULAR VOLUME 86 fL (82-100); MONOCYTES # (AUTO) 0.6 /CMM (0.1-1.30); MONOCYTES % (AUTO) 7.6 % (2.0-12.0); NEUTROPHILS # (AUTO) 4.8 /CMM (1.8-8.9); NEUTROPHILS % (AUTO) 61.2 % (43.0-81.0); PLATELET COUNT (AUTO) 315 /CMM (150-450); RED BLOOD CELL COUNT(AUTO) 4.14 MIL/uL (4.0-5.2); WHITE BLOOD COUNT (AUTO) 7.9 K/uL (4.3-11.0)
[2019-11-10] MEDS: PANTOPRAZOLE 40 MG TABLET.DR PO SCH (06:43)
[2019-11-10 06:49] LABS: CALCIUM, SERUM 9.2 mg/dL (8.5-10.1); CARBON DIOXIDE 28 mmol/L (21-32); CHLORIDE 97 mmol/L (98-107); GLUCOSE 171 mg/dL (74-106); PHOSPHORUS 3.5 mg/dL (2.5-4.9); POTASSIUM 3.9 mmol/L (3.5-5.1); SODIUM SERUM 131 mmol/L (136-145); UREA NITROGEN, BLOOD 34 mg/dL (7-18)
--- NOTE | 2019-11-10 07:30 | NUR ---
MS/RN OPENING NOTES Received patient awake in bed, A&O x 3. Denies any pain and discomfort at this time. Breathing even and non-labored on RA, no SOB noted. No cardiac distress noted. IV access noted on R FA #20 , patent and intact, and flushing well. No s/s of infection, bleeding, or infiltration. Sensation from all peripheral extremties intact. Bed locked to its lowest position, side rails x 2 up, instructed patient to use call light when in need of assistance. Will continue to monitor for any changes of condition.
[2019-11-10 08:00] VITALS: BP 130/56
[2019-11-10] MEDS: LINAGLIPTIN 5 MG TABLET PO SCH (08:18)
[2019-11-10] MEDS: ASPIRIN EC 81 MG TABLET.DR PO SCH (08:18)
[2019-11-10] MEDS: AZITHROMYCIN 250 MG TABLET PO SCH (08:18)
[2019-11-10] MEDS: CALCIUM CARB 250MG /VITAMIN D 1 UDTAB PO SCH (08:18)
[2019-11-10] MEDS: ATENOLOL 50 MG TABLET PO SCH (08:19)
[2019-11-10] MEDS: NEOMY SULF/BACITRAC ZN/POLY 15 GM TUBE TP SCH (08:26)
[2019-11-10] MEDS: FLUTICASONE/VILANTEROL 1 EACH BLST.W.DEV IH SCH (08:26)
[2019-11-10] MEDS: ENOXAPARIN SODIUM 30 MG/0.3 ML DISP.SYRIN SQ SCH (08:30)
--- NOTE | 2019-11-10 09:00 | NUR ---
MS/RN NOTES Niranjan, son, brought patient's 2 cellphones, 1 chief mechanical officer, and medication (desvenlafaxine, sent to pharmacy). Updated belongings list.
--- NOTE | 2019-11-10 11:19 | NUR ---
MS/RN NOTE Pharmacy delivered desvenlafaxine succinate ER 50 mg at 1115, which was scheduled at 10. Administered to patient. Will continue to monitor.
[2019-11-10] MEDS ORDERED: BISACODYL SUPP (10 MG) 10 MG/SUPP.RECT SUPP.RECT RC ONE (12:30)
[2019-11-10 16:00] VITALS: BP 157/76
--- NOTE | 2019-11-10 16:46 | NUR ---
MS/RN NOTE Patient's son, Niranjan, asks to talk to the doctor, notified MD.
--- NOTE | 2019-11-10 18:45 | NUR ---
MS/RN CLOSING NOTE Patient resting in bed, remains stable. VSS, afebrile, no SOB noted. Breathing even and non-labored on RA, saturating well. No respiratory or cardiac distress noted. No complaints of pain/discomfort noted. IV access on R FA #20 g, remains patent and intact, and flushing well. No s/s of infiltration, infection, or bleeding noted. Sensation from all peripheral extremities intact. Patient is ambulatory with assist, instructed to use call light when in need of assistance. Fall precautions maintained. Will endorse to table games shift manager nurse.
--- NOTE | 2019-11-10 19:32 | NUR ---
MS/RN OPENING NOTE Patient awake in bed, A/O x3, pleasant. Patient denies pain, nausea, vomiting. Afebrile. Breathing even, clear, unlabored, on room air. No acute distress or SOB noted. No JVD. Trachea midline. Mucous membranes pink and moist. Healing wound to nose s/p skin cancer resection. No drainage noted. Open to air. Patient voids via BRP with assist. Bowel sounds normoactive in all quadrants. Abdomen medium, round, soft, non-distended. Urine clear, yellow, no sediment. IV site RFA 20g saline locked, no signs of infiltration. IV patent and intact. Bed in low position, wheels locked, side rails up x2, call light within reach.
[2019-11-10 20:41] VITALS: BP 159/84
[2019-11-10] MEDS: HYDROCODONE/APAP 5/325MG TABLET PO PRN (21:45)
[2019-11-10] MEDS: ATORVASTATIN 10 MG TABLET PO SCH (21:45)
--- NOTE | 2019-11-10 21:45 | NUR ---
MS/RN NOTE Patient c/o left chest pain, non-radiating, level 4. Administered prescribed PRN norco as ordered. VSS. will continue to monitor.
[2019-11-11] MEDS: CEFTRIAXONE 1 G in IV D5W 50 ML IV SCH (05:26)
--- NOTE | 2019-11-11 06:17 | NUR ---
MS/RN CLOSING NOTE Patient asleep in bed, A/O x3, pleasant. Patient denies pain, nausea, vomiting. Afebrile. Breathing even, clear, unlabored, on room air. No acute distress or SOB noted. Healing wound to nose s/p skin cancer resection. No drainage noted. Open to air. Patient voids via BRP with assist. Void 3x this shift. Urine clear, yellow, no sediment. Bowel sounds normoactive in all quadrants. No bowel movement. Abdomen medium, round, soft, non-distended. IV site RFA 20g saline locked, no signs of infiltration. IV patent and intact. Bed in low position, wheels locked, side rails up x2, call light within reach.
[2019-11-11 06:22] LABS: BASOPHILS # (AUTO) 0.1 /CMM (0.0-0.2); BASOPHILS % (AUTO) 0.8 % (0.0-2.0); EOSINOPHILS % (AUTO) 13.9 % (0.0-6.0); HEMATOCRIT 36 % (33-45); HEMOGLOBIN 11.8 g/dL (11.5-14.8); LYMPHOCYTES # (AUTO) 1.6 /CMM (0.8-4.8); LYMPHOCYTES % (AUTO) 22.3 % (20.0-44.0); MEAN CORPUSCULAR HGB CONC 33 g/dl (31.0-36.0); MEAN CORPUSCULAR VOLUME 86 fL (82-100); MONOCYTES # (AUTO) 0.5 /CMM (0.1-1.30); MONOCYTES % (AUTO) 7.5 % (2.0-12.0); NEUTROPHILS % (AUTO) 55.5 % (43.0-81.0); PLATELET COUNT (AUTO) 329 /CMM (150-450); RED BLOOD CELL COUNT(AUTO) 4.21 MIL/uL (4.0-5.2); WHITE BLOOD COUNT (AUTO) 7.2 K/uL (4.3-11.0)
[2019-11-11] MEDS: PANTOPRAZOLE 40 MG TABLET.DR PO SCH (06:37)
[2019-11-11 06:52] LABS: CALCIUM, SERUM 9.4 mg/dL (8.5-10.1); CARBON DIOXIDE 29 mmol/L (21-32); CHLORIDE 101 mmol/L (98-107); CREATININE 1.5 mg/dL (0.6-1.3); GLUCOSE 124 mg/dL (74-106); PHOSPHORUS 3.3 mg/dL (2.5-4.9); POTASSIUM 4.1 mmol/L (3.5-5.1); SODIUM SERUM 136 mmol/L (136-145); UREA NITROGEN, BLOOD 24 mg/dL (7-18)
--- NOTE | 2019-11-11 07:22 | NUR ---
MS/RN OPENING NOTES Received patient resting in bed, A&O x 3. No complaints of pain/discomfort at this time.. Breathing even and non-labored on 2L oxygen. No respiratory or cardiac distress noted. IV access noted on R FA #20 , patent and intact, running NS TKO. No s/s of infection, bleeding, or infiltration. Sensation from all peripheral extremities intact. Bed locked to its lowest position, side rails x 2 up, instructed patient to use call light when in need of assistance. Fall precautions maintained. Will continue with current plan of care.
[2019-11-11 08:00] VITALS: BP 167/85
[2019-11-11] MEDS: CALCIUM CARB 250MG /VITAMIN D 1 UDTAB PO SCH (08:18)
[2019-11-11] MEDS: ASPIRIN EC 81 MG TABLET.DR PO SCH (08:18)
[2019-11-11] MEDS: AZITHROMYCIN 250 MG TABLET PO SCH (08:18)
[2019-11-11] MEDS: LINAGLIPTIN 5 MG TABLET PO SCH (08:18)
[2019-11-11] MEDS: ATENOLOL 50 MG TABLET PO SCH (08:19)
[2019-11-11] MEDS: ENOXAPARIN SODIUM 30 MG/0.3 ML DISP.SYRIN SQ SCH (08:20)
[2019-11-11] MEDS: NEOMY SULF/BACITRAC ZN/POLY 15 GM TUBE TP SCH (08:23)
[2019-11-11] MEDS: FLUTICASONE/VILANTEROL 1 EACH BLST.W.DEV IH SCH (08:25)
[2019-11-11] MEDS ORDERED: ISOSORBIDE DINITRATE (20MG) 20 MG TABLET PO SCH (10:00)
[2019-11-11] MEDS ORDERED: AZIT250T PO (10:14)
[2019-11-11] MEDS ORDERED: NIFE-35 PO (10:14)
[2019-11-11] MEDS: hydrALAZINE HCL 50 MG TABLET PO SCH ×2 (10:16→12:44)
[2019-11-11] MEDS: HYDROCODONE/APAP 5/325MG TABLET PO PRN (12:40)
[2019-11-11 12:44] VITALS: BP 120/75
--- NOTE | 2019-11-11 16:53 | NUR ---
MS/EQUIPMENT SUPERINTENDENT NOTES Patient picked up by son, Niranjan, at 1645. Patient remained stable throughout shift, VSS, no pain/discomfort noted, afebrile, no SOB noted. Breathing even and non-labored on RA. No respiratory or cardiac distress noted. IV access removed with catheter intact, placed clean dry dressing on top with tape. Sensation from all peripheral extremities intact. Photo taken of nasal wound and placed on the chart. Educated patient and son about discharge instructions, answered all their questions to their satisfaction, both verbalized understanding. Patient left facility safely along with all belongings and hospitalization documents.
== END 2019-11-11 16:45 | disposition home or self-care (01) | DRG 871 ==
LOC: ER 02:17 → TELE 05:07 → MED 11-09 08:53
PROVIDERS: ADMIT Internal Medicine; ATTEND Internal Medicine
DX: A41.9 Sepsis, unspecified organism (principal); J15.9 Unspecified bacterial pneumonia; I50.33 Acute on chronic diastolic (congestive) heart failure; N17.0 Acute kidney failure with tubular necrosis; E43 Unspecified severe protein-calorie malnutrition; J96.01 Acute respiratory failure with hypoxia; I13.0 Hypertensive heart and chronic kidney disease with heart failure and stage 1 through stage 4 chronic kidney disease, or unspecified chronic kidney disease; E87.1 Hypo-osmolality and hyponatremia; J44.0 Chronic obstructive pulmonary disease with (acute) lower respiratory infection; D68.59 Other primary thrombophilia; E87.2 Acidosis; J98.11 Atelectasis; E11.9 Type 2 diabetes mellitus without complications; K21.9 Gastro-esophageal reflux disease without esophagitis; E78.5 Hyperlipidemia, unspecified; I25.10 Atherosclerotic heart disease of native coronary artery without angina pectoris; E11.22 Type 2 diabetes mellitus with diabetic chronic kidney disease; I70.0 Atherosclerosis of aorta; N18.9 Chronic kidney disease, unspecified; N28.1 Cyst of kidney, acquired; Z79.899 Other long term (current) drug therapy; Z87.440 Personal history of urinary (tract) infections; Z87.442 Personal history of urinary calculi; Z79.4 Long term (current) use of insulin; Z79.82 Long term (current) use of aspirin; Z74.09 Other reduced mobility; Z86.73 Personal history of transient ischemic attack (TIA), and cerebral infarction without residual deficits; Z85.828 Personal history of other malignant neoplasm of skin; E83.42 Hypomagnesemia; E86.1 Hypovolemia; Z79.51 Long term (current) use of inhaled steroids; K57.30 Diverticulosis of large intestine without perforation or abscess without bleeding
CPT/HCPCS: 36415; 71045-TC; 80048-TC; 80053-TC; 80061-TC; 80076-TC; 81000-TC; 82570-TC; 83605-TC; 83735-TC; 83880; 84100-TC; 84155-TC; 84300-TC; 84484-TC; 85025-TC; 85730-TC; 87040-TC; 87081-TC; 87086-TC; C9803-CS; G0378; J0456; J0696; J1650; J1940; J2270; J2405; J3475; J7050; J7060